=== PATIENT | male | born 1965 | race Caucasian/White ===

== ENCOUNTER → 2017-03-16 | Outpatient (CLI) | payer OTHER ==
--- NOTE | 2017-03-16 16:26 | REP ---
Clinical: Pain . Comparison: 03/03/2015 . Technique: PA and lateral. Findings: The mediastinum and cardiac silhouette are normal. The lung burch are clear and without acute consolidation, effusion, or pneumothorax. The skeletal structures are intact and normal. Single lead pacemaker identified in satisfactory position. Impression: 1. No acute cardiopulmonary process. Signed by Brian Pagan MD 03/16/2017 04:18 P
== END ==
LOC: M SMT 15:59
PROVIDERS: ATTEND Internal Medicine Cardiovascular Disease
DX: T85.698A Other mechanical complication of other specified internal prosthetic devices, implants and grafts, initial encounter (principal); Z95.0 Presence of cardiac pacemaker; X58.XXXA Exposure to other specified factors, initial encounter; Y92.89 Other specified places as the place of occurrence of the external cause; Y93.89 Activity, other specified; Y99.8 Other external cause status

== ENCOUNTER → 2018-11-16 | Outpatient (REF) | payer OTHER | LOC: M SMT 12:59 | PROVIDERS: ATTEND Urology | DX: R97.20 Elevated prostate specific antigen [PSA] (principal) ==

== ENCOUNTER → 2018-12-04 | Outpatient (CLI) | payer OTHER ==
--- NOTE | 2018-12-04 13:26 | REP ---
TRANSRECTAL PROSTATE ULTRASOUND WITH ULTRASOUND GUIDANCE FOR PROSTATE BIOPSY: Real-time sonographic evaluation of the prostate was performed utilizing transrectal probe. Size of the gland is 3.9 x 2.6 x 4.5 cm for a total volume of 24 mL. Echotexture is heterogenous with scattered calcifications. Seminal vesicles are symmetrical. Ultrasound guidance was provided for Dr. Jain who performed ultrasound guided biopsy of the prostate. Electronically Signed by Cresencio Rose MD 12/05/2018 01:31 P
== END ==
LOC: M SMT PRO 09:37
PROVIDERS: ATTEND Urology
DX: C61 Malignant neoplasm of prostate (principal)
CPT/HCPCS: 76872; 76942; G0416

== ENCOUNTER 2019-02-05 07:06 | Inpatient (IN) | payer OTHER ==
[2019-02-05] VITALS (8 sets, daily range): BP systolic 98–129; BP diastolic 67–93; O2SAT 97
[~2019-02-05] VITALS: Ht 172.7 cm; Wt 76.2 kg
[~2019-02-05 07:06] MED LIST: ASPI81TA85 PO; FISH7.5C PO; FLOM0.4C39 PO; GENTAMICIN 80 MG in APPROPRIATE DILUENT 1 EA IV ONE; HEPARIN SOD (PORCINE) 5000 UNITS/ML VIAL SQ ONE; LASI20TA3 PO; LIDOCAINE 1% MDV 20ML VIAL SQ PRN; LISI-538 PO; LR 1,000 ML IV ONE; NITR4TASL SL; SIMV20TA2 PO; VANCOMYCIN HCL 1,000 MG, VIAL MATE ADAPTER 1 EACH in D5W 250 ML IV ONE; VARE05TA PO; VITA500045 PO; ZETI10TA30 PO
[2019-02-05] MEDS ORDERED: LIDOCAINE 1% SDV INJ 30 ML VIAL As Ordered ONE (07:52)
[2019-02-05] MEDS ORDERED: BUPIVACAINE HCL 0.25% 30 ML VIAL As Ordered ONE (07:52)
[2019-02-05 07:57] LABS: BLOOD UREA NITROGEN 12 MG/DL (7-18); CALCIUM LEVEL 8.9 MG/DL (8.5-10.1); CARBON DIOXIDE LEVEL 33 MEQ/L (21-32); CHLORIDE LEVEL 106 MEQ/L (98-107); CREATININE FOR GFR 0.71 MG/DL (0.70-1.30); GLOMERULAR FILTRATION RATE > 60.0 (>56); GLUCOSE, FASTING 98 MG/DL (70-100); POTASSIUM SERUM 4.6 MEQ/L (3.5-5.1); SODIUM LEVEL 139 MEQ/L (136-145)
[2019-02-05] MEDS ORDERED: LIDOCAINE 2% INJ 100 MG/5 ML SDV (FOR ANES.) As Ordered ONE (08:10)
[2019-02-05] MEDS ORDERED: dexameTHASONE 4 MG/ML 1ML VIAL (J1100) As Ordered ONE (08:10)
[2019-02-05] MEDS ORDERED: ROCURONIUM BROMIDE 50 MG/5 ML VIAL As Ordered ONE ×2 (08:10→14:04)
[2019-02-05] MEDS ORDERED: PROPOFOL 200 MG/20 ML VIAL As Ordered ONE (08:10)
[2019-02-05] MEDS ORDERED: MIDAZOLAM INJ 2 MG/2 ML VIAL (J2250) As Ordered ONE (08:11)
[2019-02-05] MEDS ORDERED: fentaNYL 250 MCG/5 ML INJECTION (J3010) As Ordered ONE (08:11)
[2019-02-05] MEDS ORDERED: PERCOCET 5MG/325MG TAB PO PRN ×2 (08:30)
[2019-02-05] MEDS ORDERED: ACETAMINOPHEN TAB 650MG DOSE (2X325MG) PO PRN (08:30)
[2019-02-05] MEDS ORDERED: MORPHINE 4 MG/ML 1ML VIAL/SYRINGE (J2270) IV PRN (08:30)
[2019-02-05] MEDS ORDERED: NITROGLYCERIN 0.4 MG SUBL TABLET SL PRN (08:30)
[2019-02-05] MEDS ORDERED: ONDANSETRON 4MG/2ML VIAL (J2405) IV PRN ×2 (08:30→13:30)
[2019-02-05] MEDS ORDERED: VARENICLINE 0.5 MG TABLET PO SCH (09:00)
[2019-02-05] MEDS ORDERED: HYDROmorphone HCL 2 MG/ML 1ML VIAL (J1170) As Ordered ONE (10:49)
[2019-02-05] MEDS ORDERED: ONDANSETRON 4MG/2ML VIAL (J2405) As Ordered ONE (12:36)
[2019-02-05] MEDS ORDERED: NEOSTIGMINE 10 MG/10 ML VIAL (J2710) As Ordered ONE (12:41)
[2019-02-05] MEDS ORDERED: GLYCOPYRROLATE INJ 0.2 MG/ML 2 ML VIAL As Ordered ONE (12:41)
[2019-02-05] MEDS: PERCOCET 5MG/325MG TAB PO PRN ×2 (13:25→14:08)
[2019-02-05] MEDS ORDERED: MORPHINE 10 MG/ML 1ML VIAL (J2270) IV PRN (13:30)
[2019-02-05] MEDS ORDERED: LR 1,000 ML IV SCH (13:30)
[2019-02-05] MEDS ORDERED: fentaNYL 100 MCG/2 ML INJECTION (J3010) IV PRN (13:30)
[2019-02-05] MEDS ORDERED: METOCLOPRAMIDE INJ 10MG/2ML VIAL (J2765) IV PRN (13:30)
[2019-02-05 13:31] LABS: HEMATOCRIT 38.7 % (42.0-52.0); HEMOGLOBIN 12.7 g/dl (13.5-17.5); MEAN CORPUSCULAR HEMOGLOBIN 28.6 pg (27.0-33.0); MEAN CORPUSCULAR HGB CONC 32.8 g/dl (32.0-36.5); MEAN CORPUSCULAR VOLUME 87.2 fl (80.0-96.0); PLATELET COUNT, AUTOMATED 193 10^3/uL (150-450); RED BLOOD COUNT 4.44 10^6/uL (4.30-6.10); WHITE BLOOD COUNT 13.5 10^3/uL (4.0-10.0)
--- NOTE | 2019-02-05 13:47 | ROOPDOC ---
[facility] Report Of Operation Report of Operation DATE OF PROCEDURE: 02/05/19 PREPROCEDURE DIAGNOSIS: Prostate cancer. POSTPROCEDURE DIAGNOSIS: Prostate cancer. PROCEDURE: Robotic-assisted laparoscopic radical prostatectomy with lysis of adhesions. SURGEON: Alfonzo Murphy MD CHART COLLECTOR: Charla Allred NP ANESTHESIA: General. OPERATIVE INDICATIONS: This is a 53 year old male with clinical stage T1c [place] 3+3 prostate cancer, who presents to the operating room today for the above listed procedure. DESCRIPTION OF PROCEDURE: The patient was brought to the operating room and general anesthesia was induced. Prophylactic antibiotics were infused. He was then placed in the supine position and prepped and draped in the usual sterile fashion. At this point, a Rodriguez catheter was inserted into the bladder and the balloon was filled with 10 mL of sterile water. We then made a midline incision just above the umbilicus for an 8mm port. A Veress needle was utilized to ach ieve pneumoperitoneum. Next, an 8 mm port was inserted into the incision and subsequently a camera was inserted. There were no injuries from the Veress needle or initial trocar placement. At this point, we placed the remaining ports, including a 12 mm assistant professor of forestry port and then three robotic ports in the usual configuration. Once all the ports were placed, the the robot was docked. Lysis of adhesions between the sigmoid colon and abdominal wall was then performed. The patient had a significant amount of adhesions due to several previous abdominal surgeries. The bladder was then dropped using electrocautery. Once the bladder was dropped, the fat overlying the prostate was cleared using electrocautery. The superficial dorsal vein was controlled with electrocautery. The endopelvic fascia was opened on both sides and the dorsal venous complex was cleared. Next, a #0 Vicryl figu re-of-eight stitch was placed around the dorsal venous complex. Once that was done, the bladder was opened and dissected away from the prostate. At this point, the prostate was lifted up. The vasa deferentia were identified in the midline. They were controlled with electrocautery and then transected. The seminal vesicles were also dissected off bilaterally. The rectum was safely mobilized away from the prostate. A nerve-sparing procedure was performed on the right based on the patient's preop discussion. After dissecting the right neurovascular bundle off the prostate using cold scissors, bilateral prostatic pedicles were controlled using the Harmonic scalpel. The pedicles were carried towards the apex. After taking care of the pedicles and mobilizing the rectum off the prostate below, the prostate was only connected by the urethra. At this point, the dorsal venous complex was transected with electrocautery. The urethra was then opened and the catheter was withdrawn and the posterior urethra was transected, thus freeing the prostate. At this point, we checked for hemostasis and it did appear very good. Once hemostasis was confirmed, I then moved on to perform the vesicourethral anastomosis. This was performed with a Quill stitch in a running fashion. Once this was done, the final #18-Occitan Rodriguez catheter was placed. The balloon was filled with 15 mL of sterile water. Upon completion of the vesicourethral anastomosis, it was tested by filling the bladder with 120 mL of sterile water. The vesicourethral anastomosis appeared to be watertight. At this point, the prostate and seminal vesicles were placed in an Endo Catch bag for future retrieval. The robot was then undocked. A Trish fascial closure device was utilized to place a #0 Vicryl suture between the fascia of the 12 mm assistant professor of forestry port. At this point, a Pan- Miner drain was brought in through the left robotic port skin site and the drain was positioned anterior to the bladder. The drain was secured to the skin with #2-0 Ethilon suture. Next, all the remaining ports were removed and there did not appear to be any bleeding from any of the port sites. The prostate,was then extracted from the camera port site after the skin was extended. The fascia in this incision was then closed with a running #0 Vicryl stitch. The previously placed #0 Vicryl free ties through the assistant professor of forestry port skin site were then tied down and all incisions were irrigated. Last, all of the incisions were closed with running subcuticular #4-0 Monocryl sutures. Local anesthesia was applied. Dermabond was then applied to the incisions. This marked the conclusion of the procedure. The patient was then awakened from anesthesia and transported to the recovery room in stable condition. ESTIMATED BLOOD LOSS: 50 mL. COMPLICATIONS: None. SPECIMENS: Prostate. PLAN: The patient will be admitted to the hospital postoperatively, and he will likely be discharged home within the next 1-2 days. ALFONZO MURPHY MD Feb 05, 2019 13:47
[2019-02-05 13:59] LABS: BLOOD UREA NITROGEN 15 MG/DL (7-18); CALCIUM LEVEL 8.4 MG/DL (8.5-10.1); CARBON DIOXIDE LEVEL 26 MEQ/L (21-32); CHLORIDE LEVEL 107 MEQ/L (98-107); CREATININE FOR GFR 1.02 MG/DL (0.70-1.30); GLOMERULAR FILTRATION RATE > 60.0 (>56); GLUCOSE, FASTING 144 MG/DL (70-100); POTASSIUM SERUM 4.8 MEQ/L (3.5-5.1); SODIUM LEVEL 137 MEQ/L (136-145)
[2019-02-05] MEDS: ceFAZolin SOD 1 GM in D5W MINI-BAG PLUS 50 ML IV SCH (16:56)
[2019-02-05] MEDS: NS 1,000 ML IV SCH ×2 (16:57→18:30)
[2019-02-05] MEDS: DOCUSATE SODIUM 100 MG CAP PO SCH ×2 (16:58→21:34)
[2019-02-05] MEDS: HEPARIN SOD (PORCINE) 5000 UNITS/ML VIAL SC SCH ×2 (16:58→21:34)
[2019-02-05] MEDS ORDERED: SIMVASTATIN 20 MG TAB PO SCH (21:00)
[2019-02-05] MEDS: VARENICLINE 0.5 MG TABLET PO SCH (21:34)
[2019-02-05] MEDS: EZETIMIBE 10 MG TAB (ZETIA) PO SCH (21:34)
[2019-02-06] VITALS: BP 100/68
[2019-02-06] MEDS: NS 1,000 ML IV SCH (00:10)
[2019-02-06] MEDS: ceFAZolin SOD 1 GM in D5W MINI-BAG PLUS 50 ML IV SCH (00:10)
[2019-02-06 04:00] VITALS: BP 126/71
[2019-02-06] MEDS: HEPARIN SOD (PORCINE) 5000 UNITS/ML VIAL SC SCH ×3 (06:07→21:22)
[2019-02-06 06:30] LABS: MEAN CORPUSCULAR HEMOGLOBIN 29.2 pg (27.0-33.0); MEAN CORPUSCULAR VOLUME 88.5 fl (80.0-96.0); PLATELET COUNT, AUTOMATED 187 10^3/uL (150-450); RED BLOOD COUNT 3.39 10^6/uL (4.30-6.10); WHITE BLOOD COUNT 12.1 10^3/uL (4.0-10.0)
[2019-02-06 06:43] LABS: HEMOGLOBIN 9.9 g/dl (13.5-17.5)
[2019-02-06 06:55] LABS: BLOOD UREA NITROGEN 17 MG/DL (7-18); CALCIUM LEVEL 8.2 MG/DL (8.5-10.1); CARBON DIOXIDE LEVEL 28 MEQ/L (21-32); CHLORIDE LEVEL 107 MEQ/L (98-107); CREATININE FOR GFR 0.86 MG/DL (0.70-1.30); GLOMERULAR FILTRATION RATE > 60.0 (>56); GLUCOSE, FASTING 121 MG/DL (70-100); POTASSIUM SERUM 4.8 MEQ/L (3.5-5.1); SODIUM LEVEL 139 MEQ/L (136-145)
--- NOTE | 2019-02-06 07:42 | IPNPDOC ---
Assessment/Plan Date Seen The patient was seen on 02/06/19. Patient Summary This is a 53 y/o M POD 1 s/p RALP. He is doing well this am. His BP was a little low o/n but better this morning. Hb trended down to 9.9. UOP has been good w/ minimal drain output. Plan/VTE VTE Prophylaxis Ordered?: Yes VTE Exclusion Mechanical Proph: N/A:VTE Prophy Ordered VTE Exclusion Pharmacological: N/A:VTE Prophy Ordered Plan/Urinary Catheter Urinary Catheter: Other Catheter: (catheter will need to stay in for 7-10 days for healing of the vesicourethral anastomosis) Plan - d/c IVF - strict I/Os - percocet prn pain - cont home meds - ambulate as tolerated - SCDs when in bed - SQH - incentive spirometry - advance diet as tolerated - possible discharge home later today Subjective Review oF Systems Chief Complaint The patient is a 53-year-old male admitted with a reason for visit of Prostate Cancer. Events since Last Encounter No acute events o/n. Good pain control. No n/v this am. No flatus yet. Has not ambulated yet. No f/c/ns. Objective Physical Examination General Exam: Alert, Cooperative, No Acute Distress ABDOMEN EXAM: Soft, Tenderness (mild), Other (incisions clean/dry/intact; DILLON w/ serosanguinous output and leakage around the tubing) Skin Exam: Nl turgor and temperature Neuro Exam: Normal Speech Psych Exam: Mental status NL, Mood NL Other physical findings catheter in place, draining clear urine Vital Signs/I&O Vital Signs Date Time Temp Pulse Resp B/P (MAP) Pulse Ox O2 Delivery O2 Flow Rate FiO2 02/06/19 06:38 96 16 96 2.0 02/06/19 04:00 98.5 126/71 (89) 02/05/19 17:35 Nasal Cannula I&O- Last 24 Hours up to 6 AM 02/06/19 06:00 Intake Total 4115 ml Output Total 2350 ml Balance 1765 ml Laboratory Data Labs 24H Laboratory Tests 2 02/05/19 13:17: Nucleated Red Blood Cells % (auto) 0.0, Anion Gap 4L, Glomerular Filtration Rate > 60.0, Blood Urea Nitrogen 15, Creatinine 1.02, Sodium Level 137, Potassium Level 4.8, Chloride Level 107, Carbon Dioxide Level 26, Calcium Level 8.4L 02/06/19 05:30: Nucleated Red Blood Cells % (auto) 0.0, Anion Gap 4L, Glomerular Filtration Rate > 60.0, Blood Urea Nitrogen 17, Creatinine 0.86, Sodium Level 139, Potassium Level 4.8, Chloride Level 107, Carbon Dioxide Level 28, Calcium Level 8.2L CBC/BMP Laboratory Tests 02/05/19 13:17 Red Blood Count 4.44, Mean Corpuscular Volume 87.2, Mean Corpuscular Hemoglobin 28.6, Mean Corpuscular Hemoglobin Concent 32.8, Red Cell Distribution Width 14.1, Calcium Level 8.4 L 02/06/19 05:30 Red Blood Count 3.39 L, Mean Corpuscular Volume 88.5, Mean Corpuscular Hemoglobin 29.2, Mean Corpuscular Hemoglobin Concent 33.0, Red Cell Distribution Width 14.4, Calcium Level 8.2 L ALFONZO MURPHY MD Feb 06, 2019 07:42
[2019-02-06] MEDS: VARENICLINE 0.5 MG TABLET PO SCH ×2 (08:45→21:21)
[2019-02-06] MEDS: LISINOPRIL 20 MG TAB PO SCH (08:45)
[2019-02-06] MEDS: ASPIRIN 81 MG ENTERIC TAB PO SCH (08:46)
[2019-02-06] MEDS: DOCUSATE SODIUM 100 MG CAP PO SCH ×2 (08:46→21:21)
[2019-02-06] MEDS: FUROSEMIDE 10MG PER 1/2 TABLET PO SCH (08:46)
[2019-02-06 10:00] VITALS: BP 116/71
[2019-02-06 12:10] LABS: HEMATOCRIT 29.6 % (42.0-52.0); HEMOGLOBIN 9.8 g/dl (13.5-17.5)
[2019-02-06 14:00] VITALS: BP 133/74
[2019-02-06 18:00] VITALS: BP 147/88
[2019-02-06] MEDS ORDERED: CIPROFLOXACIN 500 MG TAB PO SCH (18:15)
[2019-02-06] MEDS ORDERED: PERCOCET PO (18:40)
[2019-02-06] MEDS ORDERED: DOCU100C16 PO (18:40)
[2019-02-06] MEDS ORDERED: CIPR-249 PO (18:40)
[2019-02-06] MEDS ORDERED: ACET1TAB55 PO (18:40)
[2019-02-06] MEDS: EZETIMIBE 10 MG TAB (ZETIA) PO SCH (21:21)
[2019-02-06 22:00] VITALS: BP 120/71
--- NOTE | 2019-02-07 01:53 | DSES ---
DATE OF ADMISSION: 02/05/2019 DATE OF DISCHARGE: 02/07/2019 ADMISSION DIAGNOSIS: Prostate cancer. DISCHARGE DIAGNOSIS: Prostate cancer. ADMITTING PHYSICIAN: Dr. Alvaro Jain DISCHARGING PHYSICIAN: Dr. Alvaro Jain PROCEDURE PERFORMED: Robotic-assisted laparoscopic radical prostatectomy with lysis of adhesions on 02/05/2019. HISTORY OF PRESENT ILLNESS: This is a 53-year-old male with prostate cancer who elected to undergo the above listed procedure. He was admitted to the hospital postoperatively. HOSPITALIZATION COURSE: The patient's postoperative course was unremarkable. Of note, on postoperative day #1, his hemoglobin was noted to have drifted down from 12.7 immediately postoperatively to 9.9. His vital signs were stable. We did recheck his hemoglobin later that afternoon on postoperative day #1, and it remained stable at 9.8. His pain was well controlled with oral pain medications. He had some difficulty ambulating on postoperative day #1, noting that he felt a little dizzy. On postoperative day #2 this resolved and he was ambulating well. His hemoglobin was stable. He was tolerating a regular diet. Since he was doing well, he was deemed ready for discharge. Of note, he had excellent urine output from his catheter and normal output from his Pan-Miner drain. His Pan-Miner drain was, therefore, removed. He will be discharged home on postoperative day #[address] with his catheter in place with the plan for him to followup in clinic in approximately 1 week for catheter removal and to discuss pathology results. BROOKE
[2019-02-07 02:00] VITALS: BP 155/72
[2019-02-07 04:00] VITALS: BP 155/72
[2019-02-07] MEDS ORDERED: ONDANSETRON 4 MG TAB (S0181) PO ONE (05:45)
[2019-02-07 06:00] VITALS: BP 186/86
[2019-02-07] MEDS: HEPARIN SOD (PORCINE) 5000 UNITS/ML VIAL SC SCH ×2 (06:07→13:40)
[2019-02-07 06:59] LABS: HEMATOCRIT 27.9 % (42.0-52.0); HEMOGLOBIN 9.2 g/dl (13.5-17.5); MEAN CORPUSCULAR HEMOGLOBIN 29.3 pg (27.0-33.0); MEAN CORPUSCULAR VOLUME 88.9 fl (80.0-96.0); PLATELET COUNT, AUTOMATED 171 10^3/uL (150-450); RED BLOOD COUNT 3.14 10^6/uL (4.30-6.10); WHITE BLOOD COUNT 12.3 10^3/uL (4.0-10.0)
[2019-02-07 07:20] LABS: BLOOD UREA NITROGEN 12 MG/DL (7-18); CALCIUM LEVEL 8.2 MG/DL (8.5-10.1); CARBON DIOXIDE LEVEL 30 MEQ/L (21-32); CHLORIDE LEVEL 107 MEQ/L (98-107); CREATININE FOR GFR 0.75 MG/DL (0.70-1.30); GLOMERULAR FILTRATION RATE > 60.0 (>56); GLUCOSE, FASTING 116 MG/DL (70-100); POTASSIUM SERUM 4.1 MEQ/L (3.5-5.1); SODIUM LEVEL 140 MEQ/L (136-145)
--- NOTE | 2019-02-07 07:45 | IPNPDOC ---
Assessment/Plan Date Seen The patient was seen on 02/07/19. Patient Summary This is a 53 y/o M POD2 s/p RALP w/ SILVERIO. He is doing better this am. His Hb is stable at 9. His UOP has been very good. Plan/VTE VTE Prophylaxis Ordered?: Yes VTE Exclusion Mechanical Proph: N/A:VTE Prophy Ordered VTE Exclusion Pharmacological: N/A:VTE Prophy Ordered Plan/Urinary Catheter Urinary Catheter: Other Catheter: (catheter will need to stay in for 7-10 days for healing of the vesicourethral anastomosis) Plan - percocet prn pain - cont home meds - SCDs when in bed - SQH - incentive spirometry - strict I/Os - regular diet - plan discharge home today Subjective Review oF Systems Chief Complaint The patient is a 53-year-old male admitted with a reason for visit of Prostate Cancer. Events since Last Encounter Patient noted some increased bloating after ambulating yesterday and therefore was not discharged. He had some gagging this morning, but that has improved. He is passing flatus and had a bm. His pain is well controlled. He denies f/c. No chest pain or SOB. Tolerating regular diet. Objective Physical Examination General Exam: Alert, Cooperative, No Acute Distress ABDOMEN EXAM: Soft, Tenderness (mild), Other (incisions clean/dry/intact; DILLON incision site w/ dressings in place and no saturation of gauze) Skin Exam: Nl turgor and temperature Neuro Exam: Normal Speech Psych Exam: Mental status NL, Mood NL Other physical findings catheter in place, draining clear urine Vital Signs/I&O Vital Signs Date Time Temp Pulse Resp B/P (MAP) Pulse Ox O2 Delivery O2 Flow Rate FiO2 02/07/19 06:00 99.4 102 18 186/86 (119) 91 02/06/19 18:00 2.0 02/05/19 17:35 Nasal Cannula I&O- Last 24 Hours up to 6 AM 02/07/19 06:00 Intake Total 1340 ml Output Total 3460 ml Balance -2120 ml Laboratory Data Labs 24H Laboratory Tests 2 02/06/19 20:19: Bedside Glucose (Misc Panel) 127H 02/07/19 06:40: Nucleated Red Blood Cells % (auto) 0.0, Anion Gap 3L, Glomerular Filtration Rate > 60.0, Blood Urea Nitrogen 12, Creatinine 0.75, Sodium Level 140, Potassium Level 4.1, Chloride Level 107, Carbon Dioxide Level 30, Calcium Level 8.2L CBC/BMP Laboratory Tests 02/06/19 11:58 02/07/19 06:40 Red Blood Count 3.14 L, Mean Corpuscular Volume 88.9, Mean Corpuscular Hemoglobin 29.3, Mean Corpuscular Hemoglobin Concent 33.0, Red Cell Distribution Width 14.6 H, Calcium Level 8.2 L FSBS Laboratory Tests Test 02/06/19 20:19 Range/Units Bedside Glucose (Misc Panel) 127 70-105 MG/DL ALFONZO MURPHY MD Feb 07, 2019 07:45
[2019-02-07] MEDS: FUROSEMIDE 10MG PER 1/2 TABLET PO SCH (08:57)
[2019-02-07] MEDS: VARENICLINE 0.5 MG TABLET PO SCH (08:57)
[2019-02-07 09:00] VITALS: BP 118/92
[2019-02-07] MEDS: ASPIRIN 81 MG ENTERIC TAB PO SCH (09:00)
[2019-02-07] MEDS: DOCUSATE SODIUM 100 MG CAP PO SCH (09:00)
[2019-02-07] MEDS: LISINOPRIL 20 MG TAB PO SCH (09:00)
[2019-02-07 09:45] VITALS: O2SAT 95
== END 2019-02-07 15:05 | disposition home or self-care (01) | DRG 484 ==
LOC: M OR 07:06 → M MS5PR 14:20
PROVIDERS: ADMIT Urology; ATTEND Urology
PROC: 8E0W4CZ Robotic Assisted Procedure of Trunk Region, Percutaneous Endoscopic Approach (ICD-10-PCS; 2019-02-05)
PROC: 0VT04ZZ Resection of Prostate, Percutaneous Endoscopic Approach (ICD-10-PCS; principal; 2019-02-05 08:30)
DX: C61 Malignant neoplasm of prostate (principal); J44.9 Chronic obstructive pulmonary disease, unspecified; E78.00 Pure hypercholesterolemia, unspecified; Z87.891 Personal history of nicotine dependence; Z79.82 Long term (current) use of aspirin; Z79.899 Other long term (current) drug therapy; Z88.0 Allergy status to penicillin; Z88.1 Allergy status to other antibiotic agents; Z88.5 Allergy status to narcotic agent; Z88.8 Allergy status to other drugs, medicaments and biological substances; Z91.041 Radiographic dye allergy status

== ENCOUNTER → 2019-03-11 | Outpatient (REF) | payer OTHER ==
[~2019-03-11] MED LIST changes: +ACET1TAB55 PO; +CIPR-249 PO; +DOCU100C16 PO; -GENTAMICIN 80 MG in APPROPRIATE DILUENT 1 EA IV ONE; -HEPARIN SOD (PORCINE) 5000 UNITS/ML VIAL SQ ONE; -LIDOCAINE 1% MDV 20ML VIAL SQ PRN; -LR 1,000 ML IV ONE; +PERCOCET PO; -VANCOMYCIN HCL 1,000 MG, VIAL MATE ADAPTER 1 EACH in D5W 250 ML IV ONE
== END ==
LOC: M SFHCCLAY 09:12
PROVIDERS: ATTEND Urology
DX: C61 Malignant neoplasm of prostate (principal)

== ENCOUNTER → 2019-06-18 | Outpatient (REF) | payer OTHER ==
[~2019-06-18] MED LIST changes: +ZETI10TA16 PO; -ZETI10TA30 PO
== END ==
LOC: M SFHCCLAY 11:03
PROVIDERS: ATTEND Urology
DX: C61 Malignant neoplasm of prostate (principal)

== ENCOUNTER → 2019-10-03 | Outpatient (REF) | payer OTHER ==
[~2019-10-03] MED LIST changes: -SIMV20TA2 PO; +SIMV20TA22 PO
== END ==
LOC: M SFHCCLAY 08:58
PROVIDERS: ATTEND Urology
DX: C61 Malignant neoplasm of prostate (principal)

== ENCOUNTER → 2020-01-06 | Outpatient (REF) | payer OTHER | LOC: M SFHCCLAY 09:24 | PROVIDERS: ATTEND Urology | DX: C61 Malignant neoplasm of prostate (principal) ==

== ENCOUNTER → 2020-05-05 | Outpatient (REF) | payer OTHER ==
[~2020-05-05] MED LIST changes: +ASPI-161 PO; -ASPI81TA85 PO; +ASPI81TA86 PO; +CARV25TA PO; +FISH1000 PO; +LISI40TA PO; +PROT1TAB2 PO; +SIMV40TA20 PO; +VARE1TA PO; +VITA50005 PO
== END ==
LOC: M SFHCCLAY 08:17
PROVIDERS: ATTEND Urology
DX: C61 Malignant neoplasm of prostate (principal)

== ENCOUNTER → 2020-05-05 | Outpatient (REF) | payer OTHER ==
[2020-05-05 12:17] LABS: ALBUMIN 3.4 GM/DL (3.2-5.2); ALT/SGPT 26 U/L (12-78); BILIRUBIN,TOTAL 0.3 MG/DL (0.2-1.0); BLOOD UREA NITROGEN 10 MG/DL (7-18); CALCIUM LEVEL 8.6 MG/DL (8.5-10.1); CARBON DIOXIDE LEVEL 29 MEQ/L (21-32); CHLORIDE LEVEL 107 MEQ/L (98-107); CHOLESTEROL LEVEL 116 MG/DL (<200); CHOLESTEROL RISK RATIO 4.142 (<5); CREATININE FOR GFR 0.68 MG/DL (0.70-1.30); GLOMERULAR FILTRATION RATE > 60.0 (>56); GLUCOSE, FASTING 82 MG/DL (70-100); HDL CHOLESTEROL 28 MG/DL (>40); LDL CHOLESTEROL 66 MG/DL (<100); NON-HDL-C 88 MG/DL; POTASSIUM SERUM 4.9 MEQ/L (3.5-5.1); SODIUM LEVEL 138 MEQ/L (136-145); TOTAL PROTEIN 6.4 GM/DL (6.4-8.2); TRIGLYCERIDES LEVEL 111 MG/DL (<150)
== END ==
LOC: M LABDRAWC 11:23
PROVIDERS: ATTEND Nurse Practitioner Family
DX: I25.5 Ischemic cardiomyopathy (principal); E78.5 Hyperlipidemia, unspecified

== ENCOUNTER 2020-07-22 01:33 | Inpatient (IN) | payer OTHER ==
[~2020-07-22] VITALS: Ht 182.9 cm; Wt 79.0 kg
[~2020-07-22 01:33] MED LIST changes: -ASPI-161 PO; -CARV25TA PO; -FISH1000 PO; -LISI40TA PO; -PROT1TAB2 PO; -SIMV40TA20 PO; -VARE1TA PO; -VITA50005 PO
--- NOTE | 2020-07-22 03:39 | HPEPDOC ---
[facility] Medical History & Physical Date of Admission Jul 22, 2020 Date of Service: Jul 22, 2020 Attending Physician: RHETT GAVIRIA MD History and Physical TIME OF SERVICE: 420AM CHIEF COMPLAINT: Bright red blood per rectum HISTORY OF PRESENT ILLNESS: is a 54 yr old M who initially presented to [facility] w c/o of 4 or 5 episodes of liquid maroon stools. He had a similar episode the past after having partial colectomy to resect a large polyp. He denied having abdominal pain, denied vomiting, denied feeling dizzy, denied having dyspnea and denied having any illnesses recently. He has intentionally lost 90 lbs. At [facility] his stool occult was +. His initial blood pressure was 95/67 but improved to 104/71 w IVF; his HR ranged from 67 to 82. His Hg was 12.3, Plts were 213 and INR was 1.06. He had a CT which showed numerous findings including but not limited to a pleural based right lower lobe mass that was 4.6 x 5.4 x 4.8 cm which was reported to have increased in size when compared to previous imaging studies, nonspecific perinephric stranding, diverticulosis w/o diverticulosis, urinary bladder wall thickening, and distal colon wall thicken ing. Transfer to [facility] was requested so that he could be evaluated by GI. REVIEW OF SYSTEMS: 12 point review of systems negative except as listed in HPI PAST MEDICAL/ SURGICAL HISTORY: Prostate Cancer ([place] Score 3+4) s/p lap prostatectomy 2018 Chronic HTN Dyslipidemia COPD CAD w hx of PA s/p PCI w placement of 2 stents in 2004 (Plavix was dcd after 1 yr /on ASA) Tonsillectomy Pilonidal cystectomy 1982 Appendectomy 1992 Defibrillator implantation w subsequent resection 2018 Partial Colectomy to resect poly in 2017 by Right Inguinal Hernia repair x2 2015 and 2016 SOCIAL HISTORY: Smokes 1 -2 cigarettes per day Doesnt drink alcohol or use recreational drugs FAMILY HISTORY: Mother lung cancer ALLERGIES: Please see below. HOME MEDICATIONS: Please see below. PHYSICAL EXAMINATION: vitals at 231AM from [place] BP 104/71, HR 74, RR 16, O2 95% GENERAL APPEARANCE: well nourished/ well developed /NAD HEENT: no conjunctival palor / MMM&P CARDIOVASCULAR: RRR/ NMRG / radial pulses diminished LUNGS: CTAB on RA MUSCULOSKELETAL: NCAT / RENEE x 4 extremities / walks w/o assistance INTEGUMENT: no generalized palor / no jaundice / has spider angiomata on cheeks NEUROLOGICAL: CN 2-12 intact / speech not dysarthric PSYCHIATRIC: A&Ox 3 / able to understand and follow all commands LABORATORY DATA: see HPI IMAGING: see HPI ASSESSMENT: is a 54 yr old w a hx of partial colectomy to resect a polyp, diverticulosis & CAD w stent placement over 10 yrs ago presented to [facility] w c/o of maroon stools and was found to have hg of 12; he was transferred to [facility] for management of LGIB and GI eval. PLAN: 1 Lower GI Bleed May be due to: diverticulosis, hereditary hemorrhagic telangiectasia, polyps, colorectal cancer, or hemorrhoids [place] score to predict risk of readmission for GI bleed = 16 points = discharge not recommended Plan: admit to PCU / orthostats / CLD w IVF pending GI consult /f/u serial Hg, type & screen & coags /hold ASA 2 Right lower lobe mass 4.6 x 5.4 x 4.8 cm Plan: day time team may consider discussing findings w Pulm to determine if pt needs pleural based biopsy or image guided biopsy which can likely be done on an outpatient basis 3 Nonspecific perinephric stranding & urinary bladder wall thickening Plan: monitor for symptoms / if he develops abdominal pain and SIRS the day time team may consider ordering UA and or starting abx 4 Chronic CAD / Dyslipidemia Plan: ezetimibe & simvastatin 5 Chronic HTN Plan: bc his BP is on the low side we will hold his nitroglycerine, carvedilol & lisinopril 6 COPD 2/2 tobacco abuse Plan: albuterol PRN, varenicline / smoking cessation education 7 Hx of Prostate Cancer Plan: f/u Uro for surveillance as scheduled DVT Px w SCDs Dispo: home after more than 2 midnights stay Home Medications Scheduled Aspirin (Aspirin EC) 81 Mg Tablet.dr, 81 MG PO DAILY Carvedilol (Carvedilol) 25 Mg Tablet, 25 MG PO BID Ergocalciferol (Vitamin D2) (Vitamin D2) 50,000 Units Cap, 50,000 UNITS PO 1XWK SOSA Ezetimibe (Zetia) 10 Mg Tab, 10 MG PO QPM TAKES AT DINNER Lisinopril (Lisinopril) 40 Mg Tablet, 20 MG PO DAILY [place]-3 Fatty Acids/Fish Oil (Fish Oil 1,000 mg Capsule) 1 Each Capsule, 1,000 MG PO BID Simvastatin (Simvastatin) 40 Mg Tablet, 20 MG PO QPM TAKES AT DINNER Varenicline (Chantix) 1 Mg Tablet, 1 MG PO BID Scheduled PRN Nitroglycerin (Nitrostat) 0.4 Mg Subl, 0.4 MG SL NITRO PRN for CHEST PAIN Allergies Coded Allergies: Contrast Media (Verified Allergy, Intermediate, hives, 01/22/19) Penicillins (Verified Adverse Reaction, Intermediate, nausea, vomiting, 02/05/19) erythromycin base (Verified Adverse Reaction, Intermediate, nausea/ vomiting, 02/05/19) mepivacaine (Verified Adverse Reaction, Mild, N/V, 02/04/19) procaine (Verified Adverse Reaction, Mild, N/V, 02/04/19) A-FIB/CHADSVASC A-FIB History Current/History of A-Fib/PAF?: No Current PO Anticoag Therapy: No RHETT GAVIRIA MD Jul 22, 2020 03:39
[2020-07-22] MEDS ORDERED: ACETAMINOPHEN TAB 650MG DOSE (2X325MG) PO PRN (03:45)
[2020-07-22 04:00] VITALS: BP 130/84
[2020-07-22] MEDS ORDERED: SIMV40TA20 PO (04:20)
[2020-07-22] MEDS ORDERED: LISI40TA PO (04:20)
[2020-07-22] MEDS ORDERED: VITA50005 PO (04:20)
[2020-07-22] MEDS ORDERED: FISH1000 PO (04:20)
[2020-07-22] MEDS ORDERED: CARV25TA PO (04:20)
[2020-07-22] MEDS ORDERED: VARE1TA PO (04:20)
[2020-07-22] MEDS ORDERED: ASPI-161 PO (04:20)
[2020-07-22] MEDS ORDERED: ALBUTEROL SULFATE 2.5 MG/0.5 ML INH NEB SOLN NEB PRN (05:15)
[2020-07-22 05:28] LABS: HEMATOCRIT 35.5 % (42.0-52.0); HEMOGLOBIN 11.7 g/dl (13.5-17.5); MEAN CORPUSCULAR HEMOGLOBIN 29.3 pg (27.0-33.0); PLATELET COUNT, AUTOMATED 206 10^3/uL (150-450); RED BLOOD COUNT 3.99 10^6/uL (4.30-6.10); WHITE BLOOD COUNT 8.8 10^3/uL (4.0-10.0)
[2020-07-22 05:53] LABS: ALBUMIN 2.9 GM/DL (3.2-5.2); ALT/SGPT 23 U/L (12-78); BILIRUBIN,TOTAL 0.2 MG/DL (0.2-1.0); BLOOD UREA NITROGEN 9 MG/DL (7-18); CALCIUM LEVEL 7.9 MG/DL (8.5-10.1); CARBON DIOXIDE LEVEL 24 MEQ/L (21-32); CHLORIDE LEVEL 114 MEQ/L (98-107); GLOMERULAR FILTRATION RATE > 60.0 (>56); GLUCOSE, FASTING 89 MG/DL (70-100); SODIUM LEVEL 142 MEQ/L (136-145); TOTAL PROTEIN 5.7 GM/DL (6.4-8.2)
[2020-07-22 05:56] LABS: INR 1.08; PROTHROMBIN TIME 14.2 SECONDS (12.5-14.3)
[2020-07-22] MEDS: NS 1,000 ML IV SCH ×3 (06:14→21:51)
[2020-07-22 06:35] LABS: FERRITIN 20 NG/ML (26-388); IRON (FE) 45 UG/DL (65-175); PERCENT SATURATION 13.5 % (19.7-50.0); TOTAL IRON BINDING CAPACITY 334 UG/DL (250-450)
[2020-07-22 08:00] VITALS: BP 145/90
[2020-07-22] MEDS: PANTOPRAZOLE 40MG VIAL (C9113 PER 1) IV SCH ×2 (08:25→21:49)
[2020-07-22] MEDS: VARENICLINE 1 MG TABLET PO SCH ×2 (09:05→21:49)
[2020-07-22 12:00] VITALS: BP 147/72
--- NOTE | 2020-07-22 12:59 | IPNPDOC ---
Text Note Date of Service The patient was seen on 07/22/20. NOTE Subjective: Patient seen and examined this morning reports no active bleeding currently. Since he is doing well eating clear liquid diet. No overnight event since admission. Objective: Constitutional: Awake and alert, in no apparent distress ENT: Sclera are clear. Mucosa is moist. Respiratory: Lungs CTA bilaterally. No respiratory distress. No use of access ory muscles. Cardiovascular: RRR S1 and S2 are normal, no murmur Gastrointestinal: Abdomen is soft, non distended, non tender, BS present. Musculoskeletal: No edema Neurologic: No focal neurological deficit. Mental Status: A&O x3, normal affect Skin: Warm, dry A/P: is a 54 yr old w a hx of partial colectomy to resect a polyp, diverticulosis & CAD w stent placement over 10 yrs ago presented to [facility] w c/o of maroon stools and was found to have hg of 12; he was transferred to [facility] for management of LGIB and GI eval. # Suspected lower GI Bleed: Trend HH q8h. Occult positive as transfer hospital. Protonix IV BID. GI consulted Dr. Butler. Colonoscopy Mon or . # Right lower lobe mass: 4.6 x 5.4 x 4.8 cm.Pulm consult. # Dyslipidemia: ezetimibe & simvastatin # CAD: statin. hold ASA. # HTN: hold his nitroglycerine, carvedilol & lisinopril. Monitor and add as needed. IVFs # COPD: albuterol PRN, varenicline. smoking cessation education # Hx of Prostate Cancer: OP urology f/u # DVT prophylaxis SCDs A Analy Hospitalist Isabel MURDOCK, I+O VSIsabel I+O Laboratory Tests 07/22/20 04:52 Vital Signs Date Time Temp Pulse Resp B/P (MAP) Pulse Ox O2 Delivery O2 Flow Rate FiO2 07/22/20 04:00 98.1 81 18 130/84 (99) 97 Room Air I&O- Last 24 Hours up to 6 AM 07/22/20 05:59 Output Total 1 ml Balance -1 ml QUIQUE BARTON MD Jul 22, 2020 07:32
[2020-07-22 16:00] VITALS: BP 144/83
[2020-07-22] MEDS ORDERED: MOM 30ML SUSPENSION UDC PO ONE (16:15)
[2020-07-22] MEDS: EZETIMIBE 10 MG TAB (ZETIA) PO SCH (17:05)
[2020-07-22] MEDS: SIMVASTATIN 40 MG TAB PO SCH (17:05)
[2020-07-22] MEDS ORDERED: POLYETHYLENE GLYCOL (MIRALAX) 238GM BOTTLE PO ONE (18:00)
[2020-07-22 20:00] VITALS: BP 168/64
[2020-07-23] VITALS: BP 136/64
[2020-07-23 04:00] VITALS: BP 140/52
[2020-07-23] MEDS ORDERED: POLYETHYLENE GLYCOL (MIRALAX) 238GM BOTTLE PO ONE (05:00)
[2020-07-23 05:57] LABS: HEMATOCRIT 33.7 % (42.0-52.0); HEMOGLOBIN 11.1 g/dl (13.5-17.5); MEAN CORPUSCULAR HEMOGLOBIN 29.4 pg (27.0-33.0); MEAN CORPUSCULAR HGB CONC 32.9 g/dl (32.0-36.5); MEAN CORPUSCULAR VOLUME 89.4 fl (80.0-96.0); PLATELET COUNT, AUTOMATED 206 10^3/uL (150-450); RED BLOOD COUNT 3.77 10^6/uL (4.30-6.10); WHITE BLOOD COUNT 7.1 10^3/uL (4.0-10.0)
[2020-07-23 06:24] LABS: BLOOD UREA NITROGEN 4 MG/DL (7-18); CALCIUM LEVEL 8.2 MG/DL (8.5-10.1); CARBON DIOXIDE LEVEL 27 MEQ/L (21-32); CHLORIDE LEVEL 114 MEQ/L (98-107); CREATININE FOR GFR 0.52 MG/DL (0.70-1.30); GLOMERULAR FILTRATION RATE > 60.0 (>56); GLUCOSE, FASTING 80 MG/DL (70-100); SODIUM LEVEL 145 MEQ/L (136-145)
[2020-07-23 08:00] VITALS: BP_SYST 132; BP_SYST 142; BP_DIAS 84; BP_DIAS 88
[2020-07-23] MEDS: VARENICLINE 1 MG TABLET PO SCH (08:47)
[2020-07-23] MEDS: PANTOPRAZOLE 40MG VIAL (C9113 PER 1) IV SCH (08:52)
[2020-07-23] MEDS: NS 1,000 ML IV SCH ×2 (08:53→17:31)
[2020-07-23 12:00] VITALS: BP 150/84
[2020-07-23] MEDS ORDERED: propofoL 200 MG/20 ML VIAL As Ordered ONE (13:09)
[2020-07-23] MEDS ORDERED: LIDOCAINE 2% 100MG/5ML SDV (FOR ANES.) As Ordered ONE (13:09)
--- NOTE | 2020-07-23 13:55 | ROOR ---
Patient Name: Luciano Barber Procedure Date: 07/23/2020 1:04 PM Date of : 1965 Age: 54 Room: [facility] Gender: Male Note Status: Finalized Procedure: Colonoscopy Indications: Hematochezia Providers: Christian CLARK MD Referring MD: 2. Inpatient 2. Inpatient, CHRISITAN CROOK MD Requesting Provider: Medicines: Monitored Anesthesia Care Complications: No immediate complications. Procedure: Pre-Anesthesia Assessment: - The physical status of the patient was re-assessed after the procedure. The Colonoscope was introduced through the anus and advanced to 10 cm into the ileum. The colonoscopy was performed without difficulty. The patient tolerated the procedure well. The quality of the bowel preparation was adequate. Findings: The perianal and digital rectal examinations were normal. A single suture granuloma was found in the mid sigmoid colon. This was biopsied with a cold forceps for histology. To prevent bleeding after the biopsy, two hemostatic clips were successfully placed. There was no bleeding at the end of the procedure. Two sessile polyps were found in the ascending colon and cecum. The polyps were diminutive in size. These polyps were removed with a cold snare. Resection and retrieval were complete. To prevent bleeding after the polypectomy, two hemostatic clips were successfully placed. Multiple medium-mouthed diverticula were found in the sigmoid colon and descending colon. Internal hemorrhoids were found during retroflexion. The hemorrhoids were medium-sized. Impression: - Evidence of surgery/scar in mid sigmoid colom. A small suture granuloma is seen here. Mildly irritated. Clips were placed and biopsied.. - Two diminutive polyps in the ascending colon and in the cecum, removed with a cold snare. Resected and retrieved. Clips were placed. - Diverticulosis in the sigmoid colon and in the descending colon. - Internal hemorrhoids. (- No definite bleeding source seen, however most likely related to low grade diverticular bleeding-resolved Recommendation: - Observe patient in Hospital [facility]z until patient is stable. - Resume regular diet. - Telephone my office for pathology results in 2 weeks. - No need for routine office follow up with me. Can follow with PCP as previously scheduled. Christian Clark MD Christian CLARK MD 07/23/2020 1:54:34 PM Electronically signed by Christian CLARK MD Number of Addenda: 0 Note Initiated On: 07/23/2020 1:04 PM Estimated Blood Loss: Estimated blood loss: none.
[2020-07-23 14:00] VITALS: BP 143/76
[2020-07-23 16:00] VITALS: BP 143/76
[2020-07-23] MEDS: SIMVASTATIN 40 MG TAB PO SCH (17:27)
[2020-07-23] MEDS: EZETIMIBE 10 MG TAB (ZETIA) PO SCH (17:29)
[2020-07-23] MEDS ORDERED: PROT1TAB2 PO (18:17)
--- NOTE | 2020-07-23 18:17 | IPNPDOC ---
Text Note Date of Service The patient was seen on 07/23/20. NOTE Subjective: Patient seen and examined this morning reports no bleeding since admission. Doing well no complaints. No overnight events. Going down to do colonoscopy this afternoon. Objective: Constitutional: Awake and alert, in no apparent distress ENT: Sclera are clear. Mucosa is moist. Respiratory: Lungs CTA bilaterally. No respiratory distress. No use of accessory muscles. Cardiovascular: RRR S1 and S2 are normal, no murmur Gastrointestinal: Abdomen is soft, non distended, non tender, BS present. Musculoskeletal: No edema Neurologic: No focal neurological deficit. Mental Status: A&O x3, normal affect Skin: Warm, dry A/P: is a 54 yr old w a hx of partial colectomy to resect a polyp, diverticulosis & CAD w stent placement over 10 yrs ago presented to [facility] w c/o of maroon stools and was found to have hg of 12; he was transferred to [facility] for management of LGIB and GI eval. cattle sorter was consulted for colonoscopy which was completed on July 23. Colonoscopy did not show any source of bleeding however 3 small polyps were found and removed and 4 hemoclips were placed. Please refer to full colonoscopy report and follow-up with primary care doctor on results. # Suspected lower GI Bleed: Trend HH q8h. Occult positive as transfer hospital. Protonix IV BID and by mouth Protonix on discharge. GI consulted Dr. Butler. Colonoscopy completed on July 23 did not show any source of bleeding however 3 small polyps were found and removed and 4 hemoclips were placed. # Right lower lobe mass: 4.6 x 5.4 x 4.8 cm. 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 Aleman. Dr. Aleman had already ordered an outpatient lung CT to evaluate the chest and will be following up with him at his clinic. # Dyslipidemia: ezetimibe & simvastatin # CAD: statin. Resume aspirin upon discharge but hold it if further bleeding occurs. # HTN: resume nitroglycerine, carvedilol & lisinopril on discharge as blood pressure has come. Monitor and add as needed. # COPD: albuterol PRN, varenicline. smoking cessation education # Hx of Prostate Cancer: OP urology f/u # DVT prophylaxis SCDs A Yousef Hospitalist MATHIEUIsabel, I+O VSIsabel, I+O Laboratory Tests 07/22/20 08:56 07/22/20 14:53 07/22/20 21:10 07/23/20 05:24 Vital Signs Date Time Temp Pulse Resp B/P (MAP) Pulse Ox O2 Delivery O2 Flow Rate FiO2 07/23/20 04:00 98.2 90 16 140/52 (81) 95 Room Air I&O- Last 24 Hours up to 6 AM 07/23/20 06:00 Intake Total 3435 ml Output Total 3350 ml Balance 85 ml QUIQUE BARTON MD Jul 23, 2020 07:48
--- NOTE | 2020-07-23 18:41 | DS.PDOC ---
Discharge Summary General Date of Admission Jul 22, 2020 at 03:28 Date of Discharge July 23 Discharge Summary PROCEDURES PERFORMED DURING STAY: Colonoscopy ADMITTING DIAGNOSES: 1. Rectal bleeding DISCHARGE DIAGNOSES: 1. Bleeding diverticulosis COMPLICATIONS/CHIEF COMPLAINT: Lower Gi Bleed. HISTORY OF PRESENT ILLNESS: From admitting H&P is a 54 yr old M who initially presented to [facility] w c/o of 4 or 5 episodes of liquid maroon stools. He had a similar episode the past after having partial colectomy to resect a large polyp. He denied having abdominal pain, denied vomiting, denied feeling dizzy, denied having dyspnea and denied having any illnesses recently. He has intentionally lost 90 lbs. At [facility] his stool occult was +. His initial blood pressure was 95/67 but improved to 104/71 w IVF; his HR ranged from 67 to 82. His Hg was 12.3, Plts were 213 and INR was 1.06. He had a CT which showed numerous findings including but not limited to a pleural based right lower lobe mass that was 4.6 x 5.4 x 4.8 cm which was reported to have increased in size when compared to previous imaging studies, nonspecific perinephric stranding, diverticulosis w/o diver ticulosis, urinary bladder wall thickening, and distal colon wall thickening. Transfer to [facility] was requested so that he could be evaluated by GI. HOSPITAL COURSE: is a 54 yr old w a hx of partial colectomy to resect a polyp, diverticulosis & CAD w stent placement over 10 yrs ago presented to [facility] w c/o of maroon stools and was found to have hg of 12; he was transferred to [facility] for management of LGIB and GI eval. glass belt sander was consulted for colonoscopy which was completed on July 23. Colonoscopy did not show any source of bleeding however 3 small polyps were found and removed and 4 hemoclips were placed. Please refer to full colonoscopy report and follow-up with primary care doctor on results. # Suspected lower GI Bleed: Trend HH q8h. Occult positive as transfer hospital. Protonix IV BID and by mouth Protonix on discharge. GI consulted Dr. Butler. Colonoscopy completed on July 23 did not show any source of bleeding however 3 small polyps were found and removed and 4 hemoclips were placed. # Right lower lobe mass: 4.6 x 5.4 x 4.8 cm. 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 Aleman. Dr. Aleman had already ordered an outpatient lung CT to evaluate the chest and will be following up with him at his clinic. # Dyslipidemia: ezetimibe & simvastatin # CAD: statin. Resume aspirin upon discharge but hold it if further bleeding occurs. # HTN: resume nitroglycerine, carvedilol & lisinopril on discharge as blood pressure has come. Monitor and add as needed. # COPD: albuterol PRN, varenicline. smoking cessation education # Hx of Prostate Cancer: OP urology f/u Colonoscopy report: Impression: - Evidence of surgery/scar in mid sigmoid colom. A small suture granuloma is seen here. Mildly irritated. Clips were placed and biopsied.. - Two diminutive polyps in the ascending colon and in the cecum, removed with a cold snare. Resected and retrieved. Clips were placed. - Diverticulosis in the sigmoid colon and in the descending colon. - Internal hemorrhoids. (- No definite bleeding source seen, however most likely related to low grade diverticular bleeding-resolved DISCHARGE MEDICATIONS: Please see below. ALLERGIES: Please see below. PHYSICAL EXAMINATION ON DISCHARGE: VITAL SIGNS: Please see below. Constitutional: Awake and alert, in no apparent distress ENT: Sclera are clear. Mucosa is moist. Respiratory: Lungs CTA bilaterally. No respiratory distress. No use of accessory muscles. Cardiovascular: RRR S1 and S2 are normal, no murmur Gastrointestinal: Abdomen is soft, non distended, non tender, BS present. Musculoskeletal: No edema Neurologic: No focal neurological deficit. Mental Status: A&O x3, normal affect Skin: Warm, dry LABORATORY DATA: Please see below. PROGNOSIS: good ACTIVITY: [As tolerated]. DIET: Regular diet DISPOSITION: Home DISCHARGE INSTRUCTIONS: Please follow up with your primary care physician within 1 week from discharge. If you do not have one, please follow up with us to schedule an appointment. Please keep all of your follow up appointments. Please call central to book your appointments with hospital specialists. Please take all your medications as prescribed. Please call/come to Clinic or go to the Emergency Department if - Temp >101, intractable Nausea/Vomiting, Diarrhea, Mouth sores, Headaches, Altered mental status, Seizures, sudden onset of swelling, bleeding, shortness of breath or chest pain. ITEMS TO FOLLOWUP ON ON OUTPATIENT: 1. Follow-up with PCP in 3-5 days 2. Follow up with pulmonology as scheduled DISCHARGE CONDITION: [Stable]. TIME SPENT ON DISCHARGE: 25 minutes A Yousef Hospitalist Vital Signs/I&Os Vital Signs Date Time Temp Pulse Resp B/P (MAP) Pulse Ox O2 Delivery O2 Flow Rate FiO2 07/23/20 16:00 97.6 84 17 143/76 (98) 97 Room Air I&O- Last 24 Hours up to 6 AM 07/23/20 06:00 Intake Total 3435 ml Output Total 3350 ml Balance 85 ml Laboratory Data Labs 24H Laboratory Tests 2 07/23/20 05:24: Nucleated Red Blood Cells % (auto) 0.0, Anion Gap 4L, Glomerular Filtration Rate > 60.0, Calcium Level 8.2L 07/23/20 06:20: Coronavirus (COVID-19)(PCR) NEGATIVE CBC/BMP Laboratory Tests 07/22/20 21:10 07/23/20 05:24 Discharge Medications Scheduled Aspirin (Aspirin EC) 81 Mg Tablet.dr, 81 MG PO DAILY, (Reported) Carvedilol (Carvedilol) 25 Mg Tablet, 25 MG PO BID, (Reported) Ergocalciferol (Vitamin D2) (Vitamin D2) 50,000 Units Cap, 50,000 UNITS PO 1XWK, (Reported) MONDAY Ezetimibe (Zetia) 10 Mg Tab, 10 MG PO QPM, (Reported) TAKES AT DINNER Lisinopril (Lisinopril) 40 Mg Tablet, 20 MG PO DAILY, (Reported) [place]-3 Fatty Acids/Fish Oil (Fish Oil 1,000 mg Capsule) 1 Each Capsule, 1,000 MG PO BID, (Reported) Simvastatin (Simvastatin) 40 Mg Tablet, 20 MG PO QPM, (Reported) TAKES AT DINNER Varenicline (Chantix) 1 Mg Tablet, 1 MG PO BID, (Reported) Scheduled PRN Nitroglycerin (Nitrostat) 0.4 Mg Subl, 0.4 MG SL NITRO PRN for CHEST PAIN, (Reported) Allergies Coded Allergies: Contrast Media (Verified Allergy, Intermediate, hives, 01/22/19) Penicillins (Verified Adverse Reaction, Intermediate, nausea, vomiting, 02/05/19) erythromycin base (Verified Adverse Reaction, Intermediate, nausea/ vomiting, 02/05/19) mepivacaine (Verified Adverse Reaction, Mild, N/V, 02/04/19) procaine (Verified Adverse Reaction, Mild, N/V, 02/04/19) QUIQUE BARTON MD Jul 23, 2020 18:41
== END 2020-07-23 19:28 | disposition home or self-care (01) | DRG 244 ==
LOC: M PCU 03:28
PROVIDERS: ADMIT Internal Medicine; ATTEND Family Medicine
PROC: 0DBK8ZX Excision of Ascending Colon, Via Natural or Artificial Opening Endoscopic, Diagnostic (ICD-10-PCS; 2020-07-23)
PROC: 0DBH8ZX Excision of Cecum, Via Natural or Artificial Opening Endoscopic, Diagnostic (ICD-10-PCS; 2020-07-23)
PROC: 0W3P8ZZ Control Bleeding in Gastrointestinal Tract, Via Natural or Artificial Opening Endoscopic (ICD-10-PCS; 2020-07-23)
PROC: 0DBN8ZX Excision of Sigmoid Colon, Via Natural or Artificial Opening Endoscopic, Diagnostic (ICD-10-PCS; principal; 2020-07-23 13:12)
DX: K57.31 Diverticulosis of large intestine without perforation or abscess with bleeding (principal); I10 Essential (primary) hypertension; E78.5 Hyperlipidemia, unspecified; J44.9 Chronic obstructive pulmonary disease, unspecified; I25.10 Atherosclerotic heart disease of native coronary artery without angina pectoris; I25.2 Old myocardial infarction; Z90.49 Acquired absence of other specified parts of digestive tract; Z86.010 Personal history of colon polyps; R91.8 Other nonspecific abnormal finding of lung field; F17.210 Nicotine dependence, cigarettes, uncomplicated; D12.2 Benign neoplasm of ascending colon; D12.0 Benign neoplasm of cecum; K64.8 Other hemorrhoids; K63.89 Other specified diseases of intestine; Z85.46 Personal history of malignant neoplasm of prostate; Z79.82 Long term (current) use of aspirin; Z79.899 Other long term (current) drug therapy; Z95.5 Presence of coronary angioplasty implant and graft; Z88.0 Allergy status to penicillin; Z88.1 Allergy status to other antibiotic agents; Z88.8 Allergy status to other drugs, medicaments and biological substances; Z91.041 Radiographic dye allergy status

== ENCOUNTER → 2020-08-07 | Outpatient (REF) | payer OTHER ==
[~2020-08-07] MED LIST changes: +ASPI-161 PO; +CARV25TA PO; +FISH1000 PO; +LISI40TA PO; +PROT1TAB2 PO; +SIMV40TA20 PO; +VARE1TA PO; +VITA50005 PO
== END ==
LOC: M SFHCCLAY 08:26
PROVIDERS: ATTEND Urology
DX: C61 Malignant neoplasm of prostate (principal)

== ENCOUNTER → 2020-08-07 | Outpatient (REF) | payer OTHER ==
[2020-08-07 11:57] LABS: APPEARANCE, URINE CLEAR (CLEAR); BACTERIA, URINE AUTO NEGATIVE (NEGATIVE); BILIRUBIN, URINE AUTO NEGATIVE (NEGATIVE); BLOOD, URINE BLOOD NEGATIVE (NEGATIVE); COLOR, URINE YELLOW (YELLOW); GLUCOSE, URINE (UA) AUTO NEGATIVE (NEGATIVE); KETONE, URINE AUTO NEGATIVE (NEGATIVE); LEUKOCYTE ESTERASE, URINE AUTO NEGATIVE (NEGATIVE); NITRITE, URINE AUTO NEGATIVE (NEGATIVE); PROTEIN, URINE AUTO NEGATIVE (NEGATIVE); RBC, URINE AUTO 1 /HPF (0-3); SQUAMOUS EPITHELIAL CELL UR AU 0 /HPF (0-6); UROBILINOGEN, URINE AUTO 0.2 mg/dL (0.0-2.0); WBC, URINE AUTO 0 /HPF (0-3)
[2020-08-07 12:01] LABS: BASO # 0.1 10^3/uL (0.0-0.2); EOS # 0.1 10^3/uL (0.0-0.5); EOS % 1.7 % (0.0-3.0); HEMATOCRIT 37.8 % (42.0-52.0); HEMOGLOBIN 12.3 g/dl (13.5-17.5); LYMPH # 1.7 10^3/uL (1.5-5.0); LYMPH % 21.9 % (24.0-44.0); MEAN CORPUSCULAR HEMOGLOBIN 28.9 pg (27.0-33.0); MEAN CORPUSCULAR HGB CONC 32.5 g/dl (32.0-36.5); MEAN CORPUSCULAR VOLUME 88.7 fl (80.0-96.0); MONO # 0.6 10^3/uL (0.0-0.8); MONO % 8.2 % (0.0-5.0); NEUTROPHILS # 5.2 10^3/uL (1.5-8.5); NEUTROPHILS % 66.8 % (36.0-66.0); PLATELET COUNT, AUTOMATED 342 10^3/uL (150-450); RED BLOOD COUNT 4.26 10^6/uL (4.30-6.10); WHITE BLOOD COUNT 7.8 10^3/uL (4.0-10.0)
[2020-08-07 12:37] LABS: ALBUMIN 3.4 GM/DL (3.2-5.2); ALT/SGPT 25 U/L (12-78); BILIRUBIN,TOTAL 0.3 MG/DL (0.2-1.0); BLOOD UREA NITROGEN 12 MG/DL (7-18); CALCIUM LEVEL 8.9 MG/DL (8.5-10.1); CARBON DIOXIDE LEVEL 29 MEQ/L (21-32); CHLORIDE LEVEL 107 MEQ/L (98-107); CHOLESTEROL LEVEL 126 MG/DL (<200); CHOLESTEROL RISK RATIO 3.405 (<5); CREATININE FOR GFR 0.73 MG/DL (0.70-1.30); GLOMERULAR FILTRATION RATE > 60.0 (>56); GLUCOSE, FASTING 84 MG/DL (70-100); HDL CHOLESTEROL 37 MG/DL (>40); LDL CHOLESTEROL 75 MG/DL (<100); NON-HDL-C 89 MG/DL; POTASSIUM SERUM 4.7 MEQ/L (3.5-5.1); PROSTATIC SPECIFIC AG MONITOR < 0.01 NG/ML (< 4.00); SODIUM LEVEL 139 MEQ/L (136-145); TOTAL 25(OH) VITAMIN D 117.6 NG/ML (30.0-100.0); TOTAL PROTEIN 6.6 GM/DL (6.4-8.2); TRIGLYCERIDES LEVEL 72 MG/DL (<150)
== END ==
LOC: M LABDRAWC 11:18
PROVIDERS: ATTEND Physician Assistant Medical
DX: C61 Malignant neoplasm of prostate (principal)

== ENCOUNTER → 2020-11-17 | Outpatient (REF) | payer OTHER ==
[~2020-11-17] MED LIST changes: -LISI-538 PO; +LISI20TA33 PO; -LISI40TA PO; +LISI40TA4 PO
== END ==
LOC: M SFHCCLAY 08:08
PROVIDERS: ATTEND Urology
DX: C61 Malignant neoplasm of prostate (principal)

== ENCOUNTER → 2020-11-17 | Outpatient (REF) | payer OTHER ==
[2020-11-17 12:49] LABS: BLOOD UREA NITROGEN 15 MG/DL (7-18); CALCIUM LEVEL 9.4 MG/DL (8.5-10.1); CARBON DIOXIDE LEVEL 28 MEQ/L (21-32); CHLORIDE LEVEL 107 MEQ/L (98-107); CREATININE FOR GFR 0.75 MG/DL (0.70-1.30); GLOMERULAR FILTRATION RATE > 60.0 (>56); GLUCOSE, FASTING 89 MG/DL (70-100); POTASSIUM SERUM 5.1 MEQ/L (3.5-5.1); SODIUM LEVEL 140 MEQ/L (136-145)
== END ==
LOC: M LABDRAWC 12:00
PROVIDERS: ATTEND Physician Assistant
DX: I25.5 Ischemic cardiomyopathy (principal)

== ENCOUNTER → 2021-02-24 | Outpatient (REF) | payer OTHER | LOC: M SFHCCLAY 09:04 | PROVIDERS: ATTEND Urology | DX: C61 Malignant neoplasm of prostate (principal) ==

== ENCOUNTER → 2021-09-07 | Outpatient (REF) | payer OTHER ==
[~2021-09-07] MED LIST changes: +ERGO500029 PO; -VITA50005 PO
== END ==
LOC: M SFHCCLAY 08:46
PROVIDERS: ATTEND Urology
DX: C61 Malignant neoplasm of prostate (principal)

== ENCOUNTER → 2022-03-08 | Outpatient (REF) | payer OTHER | LOC: M SFHCCLAY 08:21 | PROVIDERS: ATTEND Urology | DX: C61 Malignant neoplasm of prostate (principal) ==

== ENCOUNTER → 2022-10-11 | Outpatient (REF) | payer OTHER ==
[~2022-10-11] MED LIST changes: +FISH10005 PO; -FISH7.5C PO
== END ==
LOC: M SFHCCLAY 08:07
PROVIDERS: ATTEND Urology
DX: C61 Malignant neoplasm of prostate (principal)

== ENCOUNTER → 2022-12-15 | Outpatient (CLI) | payer OTHER ==
[2022-12-15 18:21] LABS: RHEUMATOID FACTOR QUANT < 3.5 IU/ML (<14)
[2022-12-15 18:26] LABS: URIC ACID 6.5 MG/DL (3.7-9.2)
[2022-12-15 18:27] LABS: CRYSTALS, BODY FLUID NONE SEEN (NONE SEEN); SOURCE, BODY FLUID CRYSTALS LFT KNEE
[2022-12-15 18:47] LABS: SOURCE, BODY FLUID LFT KNEE; SYNOVIAL FLUID COLOR YELLOW (COLORLESS)
[2022-12-15 19:43] LABS: SOURCE, BODY FLUID GLUCOSE LFT KNEE
== END ==
LOC: M PLALAB 15:26
PROVIDERS: ATTEND Orthopaedic Surgery
DX: M25.462 Effusion, left knee (principal)

== ENCOUNTER → 2023-02-27 | Outpatient (CLI) | payer OTHER ==
[~2023-02-27] MED LIST changes: +ISOVUE-300 61% 100ML VIAL As Ordered ONE; +LIDOCAINE 1% MDV 20ML VIAL As Ordered ONE
== END ==
LOC: M RAD 02-13 07:39
PROVIDERS: ATTEND Orthopaedic Surgery
DX: M25.562 Pain in left knee (principal); M25.462 Effusion, left knee
CPT/HCPCS: 73580; 73701; Q9967

== ENCOUNTER → 2023-03-28 | Outpatient (REF) | payer OTHER ==
[~2023-03-28] MED LIST changes: -ISOVUE-300 61% 100ML VIAL As Ordered ONE; -LIDOCAINE 1% MDV 20ML VIAL As Ordered ONE
== END ==
LOC: M LABDRWAD 11:54
PROVIDERS: ATTEND Urology
DX: C61 Malignant neoplasm of prostate (principal)